=== PATIENT | male | born 1990 | race Caucasian/White ===

== ENCOUNTER 2022-02-17 15:26 | Emergency (ER) | payer OTHER ==
[2022-02-17] MEDS ORDERED: Lidocaine 1% (PF) 30 ML VIAL ONE (16:06)
[2022-02-17] MEDS ORDERED: Bacitracin 1 PK ONE (17:24)
== END 2022-02-17 18:01 | disposition home or self-care (01) ==
LOC: CSHERS 15:26
DX: S61.313A Laceration without foreign body of left middle finger with damage to nail, initial encounter (principal); F17.200 Nicotine dependence, unspecified, uncomplicated; W26.8XXA Contact with other sharp object(s), not elsewhere classified, initial encounter
CPT/HCPCS: J2001